=== PATIENT | male | born 1965 | race Caucasian/White ===

== ENCOUNTER 2020-04-17 20:04 | Outpatient (REF) | payer BC, SELFPAY ==
[2020-04-20 09:38] LABS: COVID-19 RT-PCR Result NEGATIVE (Negative)
== END 2020-04-17 20:24 ==
LOC: NCHCN 20:04
PROVIDERS: PCP Internal Medicine; Visit Provider Nurse Practitioner Family
DX: Z20.828 Contact with and (suspected) exposure to other viral communicable diseases (principal)
CPT/HCPCS: U0003